=== PATIENT | male | born 1970 | race African-American/Black ===

== ENCOUNTER 2016-08-15 14:00 | Emergency (ER) | payer MEDICAID ==
[~2016-08-15] VITALS: Ht 182.9 cm; Wt 115.7 kg
[2016-08-15 14:00] VITALS: BP 181/98; PULSE 85; RESP 19; TEMP 98.3; O2SAT 100
--- NOTE | 2016-08-15 14:00 | NUR ---
BROUGHT BACK TO BED #2 AND TRIAGED. REPORT GIVEN TO [place]
--- NOTE | 2016-08-15 14:05 | NUR ---
Patient in stable condition, alert and oriented x4. States that he began feeling short of breath at 1pm today when walking. States has been sick with productive cough (yellow sputum) for 2days and sore throat for one day. Audible wheezing noted. Able to finish sentences. No cough noted at this time. Denies chest pain, pressure or radiating pain per patient. No other complaints/injuries per patient or noted.
--- NOTE | 2016-08-15 14:06 | NUR ---
Dr Campuzano at bedside
[2016-08-15] MEDS ORDERED: cefTRIAXone 1 GM IVPB PREMIX 50 ML IV ONE (14:15)
[2016-08-15] MEDS ORDERED: ALBUTEROL SULFATE 0.083% 2.5 MG/3 ML VIAL.NEB IH ONE (14:15)
[2016-08-15] MEDS ORDERED: KETOROLAC TROMETHAMINE 30 MG VIAL IVP ONE (14:15)
[2016-08-15] MEDS ORDERED: IPRATROPIUM BROM 0.5 MG/2.5 ML VIAL.NEB (ATROVENT) IH ONE (14:15)
[2016-08-15 14:30] LABS: BASOPHILS % (AUTO) 0.5 % (0.0-2.0); EOSINOPHILS % (AUTO) 0.6 % (0.0-4.0); HEMATOCRIT 40.9 % (36-54); HEMOGLOBIN 13.9 g/dL (14.0-18.0); LYMPHOCYTES # (AUTO) 1.5 K/uL (1.0-5.5); LYMPHOCYTES % (AUTO) 19.1 % (20.5-51.5); MEAN CORPUSCULAR HEMOGLOBIN 31 pg (27-31); MEAN CORPUSCULAR HGB CONC 34 % (32-36); MEAN CORPUSCULAR VOLUME 92 fL (79.0-98.0); MONOCYTES % (AUTO) 12.7 % (1.7-9.3); NEUTROPHILS # (AUTO) 5.5 K/uL (1.8-7.7); NEUTROPHILS % (AUTO) 67.1 % (40.0-70.0); PLATELET COUNT (AUTO) 247 K/uL (130-430); RED BLOOD CELL COUNT(AUTO) 4.43 MIL/uL (4.2-6.2); RED CELL DISTRIBUTION WIDTH 12.9 % (9.0-15.0)
[2016-08-15 14:46] LABS: CALCIUM 8.9 mg/dL (8.4-11.0); CREATININE 1.54 mg/dL (0.55-1.30); POTASSIUM 3.4 mmol/L (3.5-5.1)
[2016-08-15 14:49] LABS: INR 1.1 (0.80-1.20); PROTHROMBIN TIME 11.5 SECS (9.5-12.5)
--- NOTE | 2016-08-15 15:00 | NUR ---
no blood cultures needed per dr riggins
--- NOTE | 2016-08-15 15:44 | NUR ---
Patient is awake alert and oriented. Sitting up in bed in stable condition.
[2016-08-15 15:58] VITALS: BP 167/97; PULSE 81; RESP 22; TEMP 98.9; O2SAT 98
--- NOTE | 2016-08-15 16:00 | NUR ---
Patient given written and verbal discharge instructions and verbalizes understanding. ER MD discussed with patient the results and treatment provided. Patient in stable condition. ID arm band removed. IV catheter removed intact and dressing applied, no active bleeding. Rx of Augmentin, Albuterol, Motrin, and Mucinex given. Patient educated on pain management and to follow up with PMD. Pain Scale 0/10 Opportunity for questions provided and answered.
== END 2016-08-15 15:58 | disposition home or self-care (01) ==
LOC: SED 14:00
DX: J20.9 Acute bronchitis, unspecified (principal); R51 Headache
CPT/HCPCS: 36415; 70360; 70450; 71010; 80048; 83880; 84484; 85025; 85610; 85730; 93005; 94640; 96365; 96375; 99285; J0696; J1885